=== PATIENT | male | born 2000 | race Caucasian/White ===

== ENCOUNTER 2024-12-08 09:13 | Emergency (ER) | payer BC ==
[~2024-12-08] VITALS: Ht 188 cm; Wt 82.8 kg
[2024-12-08 10:29] VITALS: BP 148/86
== END 2024-12-08 10:30 | disposition home or self-care (01) ==
LOC: ED 09:13
DX: R68.84 Jaw pain (principal); H92.01 Otalgia, right ear
CPT/HCPCS: 99282